=== PATIENT | female | born 1980 | race Caucasian/White ===

== ENCOUNTER 2020-09-16 15:54 | Observation (INO) | payer OTHER ==
[~2020-09-16] VITALS: Ht 157.5 cm; Wt 79.5 kg
[2020-09-16] MEDS ORDERED: AMOX1TAB61 PO (16:26)
[2020-09-16] MEDS ORDERED: PRENATAL PO (16:26)
[2020-09-16] MEDS ORDERED: CHLORHEXIDINE 15 ML UDC PO ONE (16:30)
[2020-09-16] MEDS ORDERED: LACTATED RINGERS 1,000 ML IV SCH (16:30)
[2020-09-16 16:44] VITALS: BP 123/81
[2020-09-16 17:10] LABS: BASOPHILS % (AUTO) 0 % (0-1); EOSINOPHILS % (AUTO) 1 % (1-7); LYMPHOCYTES % (AUTO) 23 % (22-44); MEAN CORPUSCULAR HEMOGLOBIN 29.8 pg (27.0-34.8); MEAN CORPUSCULAR HGB CONC 32.7 g/dL (32.4-35.8); MEAN PLATELET VOLUME 9.7 fL (7.4-10.4); MONOCYTES % (AUTO) 4 % (2-9); NEUTROPHILS % (AUTO) 72 % (42-75); PLATELET COUNT 251 x10^3/uL (130-400); RED BLOOD COUNT 4.58 x10^6/uL (3.82-5.3); RED CELL DISTRIBUTION WIDTH 14.2 % (9.6-15.2)
[2020-09-16] MEDS ORDERED: BUPIVACAINE/PF 0.25% ONE (17:50)
[2020-09-16] MEDS ORDERED: EPINEPHRINE 1 MG/ML, 1ML ONE (17:51)
[2020-09-16] MEDS ORDERED: FENTANYL PF 100 MCG/2ML ONE ×2 (17:57→19:00)
[2020-09-16] MEDS ORDERED: MIDAZOLAM 1 MG/ML, 2ML ONE (17:57)
[2020-09-16] MEDS ORDERED: hydrALAzine 20 MG/ML, 1ML IV PRN (18:30)
[2020-09-16] MEDS ORDERED: KETOROLAC 30 MG/1 ML IV PRN (18:30)
[2020-09-16] MEDS ORDERED: ACETAMINOPHEN 325 MG TABLET PO PRN (18:30)
[2020-09-16] MEDS ORDERED: MEPERIDINE/PF 25MG/0.5ML IVPush PRN (18:30)
[2020-09-16] MEDS ORDERED: FENTANYL PF 100 MCG/2ML IV PRN (18:30)
[2020-09-16] MEDS ORDERED: LABETALOL 5MG/ML, 20ML IV PRN (18:30)
[2020-09-16] MEDS ORDERED: DIAZEPAM 5 MG/ML, 2ML IVPush PRN (18:30)
[2020-09-16] MEDS ORDERED: HYDROmorphone 2 MG/ML, 1ML IVPush PRN (18:30)
[2020-09-16] MEDS ORDERED: OXYcodone 5 MG/5 ML ORAL.SOL UDC PO PRN ×2 (18:30→23:30)
[2020-09-16] MEDS ORDERED: PROMETHAZINE 25 MG/ML, 1ML IV PRN (18:30)
[2020-09-16] MEDS ORDERED: ALBUTEROL SULFATE 2.5 MG/3 ML NPPB PRN (18:30)
[2020-09-16] MEDS ORDERED: ROCURONIUM 10MG/ML,5ML ONE (18:49)
[2020-09-16] MEDS ORDERED: GLYCOPYRROLATE 0.2MG/1ML, 5ML ONE (18:49)
[2020-09-16] MEDS ORDERED: DEXAMETHASONE 4 MG/ML, 1ML ONE (18:49)
[2020-09-16] MEDS ORDERED: SUCCINYLCHOLINE 20 MG/ML, 10ML ONE (18:49)
[2020-09-16] MEDS ORDERED: ONDANSETRON 2MG/ML, 2ML ONE (18:49)
[2020-09-16] MEDS ORDERED: CEFAZOLIN 1,000 MG ONE (18:49)
[2020-09-16] MEDS ORDERED: NEOSTIGMINE 1 MG/ML, 10ML ONE (18:49)
[2020-09-16] MEDS ORDERED: PROPOFOL 10 MG/ML, 20ML ONE (18:49)
[2020-09-16] MEDS ORDERED: OXYcodone 5 MG/5 ML ORAL.SOL UDC ONE (19:00)
[2020-09-16] MEDS ORDERED: ACETAMINOPHEN 325 MG TABLET ONE (19:12)
[2020-09-16] MEDS ORDERED: KETOROLAC 30 MG/1 ML ONE (19:35)
[2020-09-16 20:28] VITALS: BP 92/48
[2020-09-16] MEDS ORDERED: KETOROLAC 30 MG/1 ML IVPush PRN (20:30)
[2020-09-16] MEDS ORDERED: IBUP-1222 PO (20:52)
[2020-09-16] MEDS ORDERED: ACET650S21 PO (20:52)
[2020-09-16] MEDS ORDERED: OXYC5CAP2 PO (20:53)
[2020-09-16] MEDS ORDERED: ONDANSETRON 2MG/ML, 2ML IVPush PRN (21:00)
[2020-09-16] MEDS ORDERED: IBUPROFEN 600 MG TABLET PO SCH (21:00)
== END 2020-09-16 22:41 | disposition home or self-care (01) ==
LOC: OR 15:54 → 4NE 17:15 → OR 20:19 → 4NE 20:19
PROVIDERS: ADMIT Student in an Organized Health Care Education/Training Program; ATTEND Student in an Organized Health Care Education/Training Program
DX: O00.101 Right tubal pregnancy without intrauterine pregnancy (principal); Z20.822 Contact with and (suspected) exposure to COVID-19; O09.529 Supervision of elderly multigravida, unspecified trimester; K66.1 Hemoperitoneum; Z98.891 History of uterine scar from previous surgery
CPT/HCPCS: 36415; 59151; 85025; 86850; 86900; 87635; 88305; G0378; J0171; J0330; J0690; J1100; J1885; J2250; J2405; J2704; J2710; J3010